=== PATIENT | female | born 1935 | race Caucasian/White ===

== ENCOUNTER 2025-06-10 16:29 | Inpatient (IN) | payer MEDICARE ==
[~2025-06-10] VITALS: Ht 147.3 cm; Wt 95.3 kg
[2025-06-10 16:32] VITALS: BP 121/65; TEMP 98
[2025-06-10 16:53] VITALS: BP 121/65; TEMP 98
[2025-06-10 21:15] VITALS: BP 150/72; TEMP 98.1; O2SAT 95
[2025-06-10] MEDS ORDERED: ALLO100T PO (23:04)
[2025-06-10] MEDS ORDERED: ATOR40TA PO (23:04)
[2025-06-10] MEDS ORDERED: ESZO2TAB22 PO (23:04)
[2025-06-10] MEDS ORDERED: METO-357 PO (23:04)
[2025-06-10] MEDS ORDERED: DICL112S2 TP (23:04)
[2025-06-10] MEDS ORDERED: CHOL100034 PO (23:04)
[2025-06-10] MEDS ORDERED: LEVO75TA7 PO (23:04)
[2025-06-10] MEDS ORDERED: POLY500P23 PO (23:04)
[2025-06-10] MEDS ORDERED: FURO80TA3 PO (23:04)
[2025-06-10] MEDS ORDERED: HYDR-4322 PO (23:04)
[2025-06-10] MEDS ORDERED: MAGN400T26 PO (23:04)
[2025-06-10] MEDS ORDERED: B CO1CAP6 PO (23:04)
[2025-06-10] MEDS ORDERED: EPOE4000 SQ (23:04)
[2025-06-10] MEDS ORDERED: GABA300C PO (23:04)
[2025-06-10] MEDS ORDERED: ALPR0.255 PO (23:04)
[2025-06-10] MEDS ORDERED: SACU1TAB PO (23:04)
[2025-06-10] MEDS ORDERED: TAMS-3 PO (23:04)
[2025-06-10] MEDS ORDERED: PANT40TA49 PO (23:04)
[2025-06-10] MEDS ORDERED: POLY250017 PO (23:04)
[2025-06-10] MEDS ORDERED: MONT10TA22 PO (23:04)
[2025-06-10] MEDS ORDERED: MIRT7.5T10 PO (23:04)
[2025-06-10] MEDS ORDERED: ESCI5TAB PO (23:04)
[2025-06-10] MEDS ORDERED: HYDR5TAB13 PO (23:04)
[2025-06-10] MEDS ORDERED: CLOP75TA33 PO (23:04)
[2025-06-10] MEDS ORDERED: FLUT1BLS IH (23:04)
[2025-06-11] MEDS: ACETAMINOPHEN 325 MG TABLET PO PRN (00:46)
[2025-06-11] MEDS: ALPRAZOLAM 0.25 MG TABLET PO PRN (00:47)
[2025-06-11 05:56] VITALS: BP 164/66; TEMP 98; O2SAT 96
[2025-06-11] MEDS: LEVOTHYROXINE SODIUM 75 MCG TABLET PO SCH (06:15)
[2025-06-11 07:47] VITALS: BP 155/73; TEMP 98; O2SAT 98
[2025-06-11] MEDS: TAMSULOSIN HCL 0.4 MG CAP.SR.24H PO SCH (08:04)
[2025-06-11] MEDS: FUROSEMIDE 20 MG TABLET PO SCH (08:04)
[2025-06-11] MEDS: ATORVASTATIN 40 MG TABLET PO SCH (08:04)
[2025-06-11] MEDS: CLOPIDOGREL 75 MG TABLET PO SCH (08:04)
[2025-06-11] MEDS: PANTOPRAZOLE SODIUM 40 MG TABLET.DR PO SCH ×2 (08:04→16:29)
[2025-06-11] MEDS: CHOLECALCIFEROL 1,000 UNIT TABLET PO SCH (08:04)
[2025-06-11] MEDS: ALLOPURINOL 100 MG TABLET PO SCH (08:05)
[2025-06-11] MEDS: METOPROLOL SUCCINATE XL 50 MG TAB.SR.24H PO SCH (08:05)
[2025-06-11] MEDS: SACUBITRIL/VALSARTAN 24 MG-26 TABLET PO SCH ×2 (08:06→16:35)
[2025-06-11] MEDS: HYDROCORTISONE 10 MG TABLET PO SCH ×2 (08:07→16:35)
[2025-06-11] MEDS: MIRALAX 17 GM POWD.PACK PO SCH (08:07)
[2025-06-11] MEDS ORDERED: [UNRECOGNIZED DRUG - REMARK] PO SCH (09:00)
[2025-06-11] MEDS ORDERED: SACUBITRIL/VALSARTAN 24 MG-26 TABLET PO SCH (10:52)
[2025-06-11] MEDS ORDERED: PANTOPRAZOLE SODIUM 40 MG TABLET.DR PO SCH (10:54)
[2025-06-11] MEDS: ALPRAZOLAM 0.25 MG TABLET PO ONE (11:28)
[2025-06-11] MEDS: QUETIAPINE FUMARATE 25 MG TABLET PO PRN (16:29)
[2025-06-11 17:23] VITALS: BP 115/68; TEMP 98; O2SAT 98
[2025-06-11] MEDS: OXYCODONE/APAP 5-325 MG TABLET PO PRN (17:25)
[2025-06-11] MEDS: MONTELUKAST SODIUM 10 MG TABLET PO SCH (20:30)
[2025-06-11] MEDS: MAGNESIUM OXIDE 400 MG TABLET PO SCH (20:30)
[2025-06-11] MEDS: MIRTAZAPINE 15 MG TABLET PO SCH (20:30)
[2025-06-11] MEDS: GABAPENTIN 100 MG CAPSULE PO SCH (20:31)
[2025-06-11] MEDS: ESCITALOPRAM OXALATE 10 MG TABLET PO SCH (20:33)
[2025-06-11] MEDS: FLUTICASONE/VILANTEROL 1 EACH BLST.W.DEV IH SCH (20:39)
[2025-06-11] MEDS: ZOLPIDEM 5 MG TABLET PO SCH (20:39)
[2025-06-11] MEDS ORDERED: ZOLPIDEM 5 MG TABLET PO SCH (21:00)
[2025-06-11 22:19] VITALS: BP 95/52; TEMP 97.4; O2SAT 97
[2025-06-12 06:58] VITALS: BP 134/63; TEMP 97.5; O2SAT 100
[2025-06-12 07:13] LABS: PLATELET COUNT (AUTO) 281 K/uL (179-408); RED BLOOD CELL COUNT(AUTO) 3.32 MIL/uL (3.63-4.92); RED CELL DISTRIBUTION WIDTH 21.2 % (12.3-17.7); WHITE BLOOD COUNT (AUTO) 8.3 K/uL (3.8-11.8)
[2025-06-12 07:31] LABS: ASPARTATE AMINOTRANSFERASE 33 U/L (15-37); CREATININE 1.8 mg/dL (0.6-1.3); SODIUM SERUM 137 mmol/L (136-145); TOTAL PROTEIN, SERUM 5.8 g/dL (6.4-8.2); UREA NITROGEN, BLOOD 24 mg/dL (7-18)
[2025-06-12 08:00] VITALS: BP_SYST 102; BP_SYST 123; BP_DIAS 51; BP_DIAS 53; TEMP 97.6; TEMP 97.7; O2SAT 98
[2025-06-12 08:09] LABS: IRON, SERUM 49 ug/dL (50-175)
[2025-06-12] MEDS: MAGNESIUM OXIDE 400 MG TABLET PO ONE (12:17)
[2025-06-12] MEDS: FOLIC ACID/VITAMIN B COMP W-C TABLET PO SCH (12:18)
[2025-06-12] MEDS: MIDODRINE HCL 2.5 MG TABLET PO SCH (12:19)
[2025-06-12 15:31] LABS: *BILIRUBIN,URIN NEGATIVE (NEGATIVE); *BLOOD, URINE NEGATIVE (NEGATIVE); *CLARITY,URINE CLEAR (CLEAR); *COLOR,URINE YELLOW (YELLOW); *KETONES,URINE NEGATIVE (NEGATIVE); *PROTEIN,URINE NEGATIVE (NEGATIVE); *UROBILINOGEN,URINE 0.2 E.U./dl (NORMAL); LEUKOCYTE ESTERASE ,URINE 1+ (NEGATIVE); NITRITE, URINE NEGATIVE (NEGATIVE); UGLUCOSE NEGATIVE (NEGATIVE)
[2025-06-12 16:30] VITALS: BP 136/51; TEMP 98; O2SAT 97
[2025-06-12 16:50] LABS: SQUAMOUS EPITHELIAL CELL,UR MANY /HPF (NONE SEEN)
[2025-06-12] MEDS: QUETIAPINE FUMARATE 25 MG TABLET PO SCH (18:14)
[2025-06-12] MEDS: TAMSULOSIN HCL 0.4 MG CAP.SR.24H PO SCH (20:18)
[2025-06-12] MEDS: ATORVASTATIN 10 MG TABLET PO SCH (20:20)
[2025-06-13 07:25] LABS: PLATELET COUNT (AUTO) 271 K/uL (179-408); RED BLOOD CELL COUNT(AUTO) 3.72 MIL/uL (3.63-4.92); RED CELL DISTRIBUTION WIDTH 22.0 % (12.3-17.7); WHITE BLOOD COUNT (AUTO) 8.4 K/uL (3.8-11.8)
[2025-06-13 07:35] VITALS: BP 145/73; TEMP 97; O2SAT 97
[2025-06-13 07:38] LABS: CREATININE 2.0 mg/dL (0.6-1.3); SODIUM SERUM 135 mmol/L (136-145); UREA NITROGEN, BLOOD 28 mg/dL (7-18)
[2025-06-13 08:35] LABS: EOSINOPHILS % (MANUAL) 2 % (0-8); LYMPHOCYTES % (MANUAL) 45 % (20-40); MONOCYTES % (MANUAL) 6 % (2-10); NEUTROPHILS % (MANUAL) 47 % (42-75); PLATELET ESTIMATE ADEQUATE
[2025-06-13 11:07] LABS: *CREATININE,URINE 160.6 mg/dL (30-125); *SODIUM RNDM,URINE 104.0 mmol/L (40-220); *URINE TOTAL PROTEIN RANDOM 45.4 mg/dL (<150/24HR)
[2025-06-13 16:00] VITALS: BP 146/44; TEMP 97.2; O2SAT 97
[2025-06-13] MEDS: ENSURE ENLIVE (VAN) 240 ML LIQUID PO SCH (16:20)
[2025-06-13 19:00] VITALS: BP 150/68; TEMP 97.8; O2SAT 95
[2025-06-14 04:00] VITALS: BP 145/64; TEMP 98.2; O2SAT 97
[2025-06-14 08:00] VITALS: BP 105/36; TEMP 98; O2SAT 98
[2025-06-14 08:20] LABS: PLATELET COUNT (AUTO) 220 K/uL (179-408); RED BLOOD CELL COUNT(AUTO) 2.74 MIL/uL (3.63-4.92); RED CELL DISTRIBUTION WIDTH 21.2 % (12.3-17.7); WHITE BLOOD COUNT (AUTO) 5.9 K/uL (3.8-11.8)
[2025-06-14 08:40] LABS: ASPARTATE AMINOTRANSFERASE 27 U/L (15-37); CREATINE KINASE, TOTAL 61 U/L (26-192); CREATININE 1.8 mg/dL (0.6-1.3); SODIUM SERUM 137 mmol/L (136-145); TOTAL PROTEIN, SERUM 4.9 g/dL (6.4-8.2); UREA NITROGEN, BLOOD 29 mg/dL (7-18)
[2025-06-14 09:51] LABS: EOSINOPHILS % (MANUAL) 3 % (0-8); LYMPHOCYTES % (MANUAL) 30 % (20-40); MONOCYTES % (MANUAL) 7 % (2-10); NEUTROPHILS % (MANUAL) 60 % (42-75)
[2025-06-14 09:52] LABS: PLATELET ESTIMATE ADEQUATE
[2025-06-14 16:00] VITALS: BP 103/52; TEMP 97.8; O2SAT 98
[2025-06-14 20:44] VITALS: BP 165/66; TEMP 97.7; O2SAT 96
[2025-06-15 05:47] VITALS: BP 145/60; TEMP 97.4; O2SAT 96
[2025-06-15 07:36] VITALS: BP 122/54; TEMP 98.4; O2SAT 97
[2025-06-15 10:07] LABS: PTH, INTACT 44 pg/mL (15-65)
[2025-06-15] MEDS: QUETIAPINE FUMARATE 25 MG TABLET PO SCH (11:05)
[2025-06-15 16:00] VITALS: BP 100/55; TEMP 98.7; O2SAT 95
[2025-06-15] MEDS: HYDROCORTISONE 10 MG TABLET PO SCH (17:32)
[2025-06-15 19:51] VITALS: BP 145/51; TEMP 97.6; O2SAT 95
[2025-06-16 05:00] VITALS: BP 162/86; TEMP 97.9; O2SAT 96
[2025-06-16 07:50] VITALS: BP 146/63; TEMP 98.1; O2SAT 94
[2025-06-16 15:35] VITALS: BP 103/47; TEMP 98.1; O2SAT 92
[2025-06-16 21:58] VITALS: BP 124/43; TEMP 98; O2SAT 95
[2025-06-17 06:23] VITALS: BP 131/76; TEMP 97.3; O2SAT 95
[2025-06-17 08:21] VITALS: BP 148/54; TEMP 98.3; O2SAT 96
[2025-06-17 16:29] VITALS: BP 104/59; TEMP 97.7; O2SAT 96
[2025-06-17 18:12] LABS: PLATELET COUNT (AUTO) 249 K/uL (179-408); RED BLOOD CELL COUNT(AUTO) 2.92 MIL/uL (3.63-4.92); RED CELL DISTRIBUTION WIDTH 21.8 % (12.3-17.7); WHITE BLOOD COUNT (AUTO) 7.3 K/uL (3.8-11.8)
[2025-06-17 18:20] LABS: CREATININE 2.3 mg/dL (0.6-1.3); SODIUM SERUM 134 mmol/L (136-145); UREA NITROGEN, BLOOD 47 mg/dL (7-18)
[2025-06-17 20:09] VITALS: BP 123/49; TEMP 97.9; O2SAT 96
[2025-06-18 06:30] VITALS: BP 146/85; TEMP 98; O2SAT 96
[2025-06-18] MEDS ORDERED: EPOETIN ALFA 10,000 UNITS/ML VIAL SQ ONE (09:00)
[2025-06-18] MEDS ORDERED: EPOETIN ALFA-EPBX 10,000 UNIT/ML VIAL SQ SCH (09:00)
[2025-06-18 15:59] VITALS: BP 97/38; TEMP 98.5; O2SAT 98
[2025-06-18 20:56] VITALS: BP 141/61; TEMP 97.9; O2SAT 97
[2025-06-19 06:29] VITALS: BP 130/50; TEMP 97.9; O2SAT 99
[2025-06-19 08:00] VITALS: BP 123/57; TEMP 97.8; O2SAT 96
[2025-06-19 08:52] LABS: CREATININE 1.9 mg/dL (0.6-1.3); SODIUM SERUM 134 mmol/L (136-145); UREA NITROGEN, BLOOD 48 mg/dL (7-18)
[2025-06-19] MEDS: SODIUM ZIRCONIUM CYCLOSILICATE 10 GM POWD.PACK PO ONE (12:36)
[2025-06-19 16:04] VITALS: BP 105/51; TEMP 97.9; O2SAT 98
[2025-06-19 20:00] VITALS: BP 106/39; TEMP 97.9; O2SAT 95
[2025-06-20 05:00] VITALS: BP 139/57; TEMP 97.4; O2SAT 96
[2025-06-20 07:29] LABS: PLATELET COUNT (AUTO) 216 K/uL (179-408); RED BLOOD CELL COUNT(AUTO) 2.66 MIL/uL (3.63-4.92); RED CELL DISTRIBUTION WIDTH 21.9 % (12.3-17.7); WHITE BLOOD COUNT (AUTO) 5.7 K/uL (3.8-11.8)
[2025-06-20 07:45] LABS: ASPARTATE AMINOTRANSFERASE 19 U/L (15-37); CREATININE 1.9 mg/dL (0.6-1.3); SODIUM SERUM 136 mmol/L (136-145); TOTAL PROTEIN, SERUM 5.4 g/dL (6.4-8.2); UREA NITROGEN, BLOOD 51 mg/dL (7-18)
[2025-06-20 07:51] VITALS: BP 157/72; TEMP 97.6; O2SAT 98
[2025-06-20] MEDS: EPOETIN ALFA-EPBX 10,000 UNIT/ML VIAL SQ SCH (14:19)
[2025-06-20 16:01] VITALS: BP 135/49; TEMP 97.7; O2SAT 95
[2025-06-20] MEDS: MAGNESIUM HYDROXIDE 30 ML LIQUID UDC PO PRN (17:50)
[2025-06-20] MEDS: DOCUSATE SODIUM 100 MG CAPSULE PO SCH (17:50)
[2025-06-20 20:02] VITALS: BP 128/47; TEMP 98; O2SAT 94
[2025-06-21 04:38] VITALS: BP_SYST 117; BP_SYST 118; BP_DIAS 48; BP_DIAS 70; TEMP 97.7; TEMP 97.9; O2SAT 94; O2SAT 95
[2025-06-21 07:45] LABS: PLATELET COUNT (AUTO) 228 K/uL (179-408); RED BLOOD CELL COUNT(AUTO) 2.67 MIL/uL (3.63-4.92); RED CELL DISTRIBUTION WIDTH 21.6 % (12.3-17.7); WHITE BLOOD COUNT (AUTO) 5.3 K/uL (3.8-11.8)
[2025-06-21 07:57] VITALS: BP 120/40; TEMP 97.6; O2SAT 97
[2025-06-21 08:25] LABS: CREATININE 1.8 mg/dL (0.6-1.3); SODIUM SERUM 138 mmol/L (136-145); UREA NITROGEN, BLOOD 50 mg/dL (7-18)
[2025-06-21 08:57] LABS: BASOPHILS % (MANUAL) 1 % (0-2); EOSINOPHILS % (MANUAL) 6 % (0-8); LYMPHOCYTES % (MANUAL) 41 % (20-40); MONOCYTES % (MANUAL) 8 % (2-10); NEUTROPHILS % (MANUAL) 44 % (42-75); PLATELET ESTIMATE ADEQUATE
[2025-06-21 13:07] LABS: A/G RATIO 1.1 (0.7-1.7); BETA GLOBULIN 0.7 g/dL (0.7-1.3); GLOBULIN, TOTAL 2.2 g/dL (2.2-3.9); M-SPIKE Not Observed g/dL (Not Observed); PROTEIN, TOTAL 4.6 g/dL (6.0-8.5)
[2025-06-21] MEDS ORDERED: SENNOSIDES 1 TABLET PO PRN (15:45)
[2025-06-21 16:00] VITALS: BP 152/41; TEMP 97.8; O2SAT 98
[2025-06-21 20:00] VITALS: BP 105/46; TEMP 98; O2SAT 94
[2025-06-22 06:00] VITALS: BP 136/68; TEMP 97.6; O2SAT 94
[2025-06-22 08:00] VITALS: BP 126/43; TEMP 98; O2SAT 95
[2025-06-22 08:12] LABS: PLATELET COUNT (AUTO) 224 K/uL (179-408); RED BLOOD CELL COUNT(AUTO) 2.61 MIL/uL (3.63-4.92); RED CELL DISTRIBUTION WIDTH 21.8 % (12.3-17.7); WHITE BLOOD COUNT (AUTO) 5.3 K/uL (3.8-11.8)
[2025-06-22] MEDS: LACTULOSE 20 G/30 ML LIQUID UDC PO ONE (10:57)
[2025-06-22 16:00] VITALS: BP 114/57; TEMP 97.8; O2SAT 94
[2025-06-22 19:55] VITALS: BP 133/54; TEMP 98.2; O2SAT 93
[2025-06-22 22:22] LABS: *OCCULT BLOOD STOOL NEGATIVE (NEGATIVE)
[2025-06-23 06:45] VITALS: BP 131/59; TEMP 97.8; O2SAT 93
[2025-06-23 08:00] VITALS: BP 123/57; TEMP 98.4; O2SAT 93
[2025-06-23 08:14] VITALS: BP 123/57
[2025-06-23] MEDS ORDERED: FLUT1BLS4 IH (15:49)
== END 2025-06-23 14:40 | disposition home health service (06) | DRG 70 ==
LOC: UNDOADMIN 20:47 → SA1 20:47
PROVIDERS: ADMIT Physical Medicine & Rehabilitation Pain Medicine; ATTEND Physical Medicine & Rehabilitation Pain Medicine
DX: G93.41 Metabolic encephalopathy (principal); N17.0 Acute kidney failure with tubular necrosis; Z68.41 Body mass index [BMI] 40.0-44.9, adult; E27.40 Unspecified adrenocortical insufficiency; E87.1 Hypo-osmolality and hyponatremia; I13.0 Hypertensive heart and chronic kidney disease with heart failure and stage 1 through stage 4 chronic kidney disease, or unspecified chronic kidney disease; I50.22 Chronic systolic (congestive) heart failure; K92.1 Melena; I25.10 Atherosclerotic heart disease of native coronary artery without angina pectoris; E66.9 Obesity, unspecified; E78.5 Hyperlipidemia, unspecified; E03.9 Hypothyroidism, unspecified; R53.1 Weakness; R07.89 Other chest pain; D64.9 Anemia, unspecified; N18.9 Chronic kidney disease, unspecified; G47.00 Insomnia, unspecified; I95.9 Hypotension, unspecified; J45.909 Unspecified asthma, uncomplicated; K59.00 Constipation, unspecified; M10.9 Gout, unspecified; R29.6 Repeated falls; K21.9 Gastro-esophageal reflux disease without esophagitis; Z91.81 History of falling
CPT/HCPCS: 36415; 70030-TC; 71045; 76770; 83550; 83735; 83970; 84100; 84155; 84165; 84300; 84443; 84484; 85025; 87086; 93005; 93307; 97535-GO-CO; A4663; J0885; J7040; J8499